=== PATIENT | female | born 1940 | race African-American/Black ===

== ENCOUNTER 2016-11-14 06:53 | Day surgery (SDC) | payer OTHER ==
--- NOTE | ~2016-11-14 | EGD ---
EGD REPORT [facility] [address] [place]. [id number] NAME: ZOIE THOMAS : [birth year] STATUS : REG [facility] [place] PAT#: [id number] AGE: 76 ADM/REG DATE : 11/14/16 MR#: [id number] REPORT SERV DATE: 11/14/16 DICTATED BY: PRADEEP NOLASCO DATE: 11/14/16 REPORT STATUS : Draft TRANSCRIBED BY: [facility] DATE: 11/14/16 [facility] Center Patient Name: Zoie Thomas Date of : 1940 Attending MD: PRADEEP NOLASCO MD Procedure Date No Time: 11/14/2016 Procedure: Colonoscopy Indications: High risk colon cancer surveillance: Personal history of colonic polyps; last exam 2013. Patient Profile: Informed consent was obtained from the patient by me prior to the procedure. Risks, benefits, and alternatives were discussed including the risk of bleeding, perforation, infection, reaction to medicine, missed lesion, and cardiopulmonary complications. Referring MD: ANA CRISTINA STILL Medicines: Monitored Anesthesia Care Complications: No immediate complications. Procedure: Pre-Anesthesia Assessment: - ASA Grade Assessment: III - A patient with severe systemic disease. After I obtained informed consent, the scope was passed under direct vision. Throughout the procedure, the patient's blood pressure, pulse, and oxygen saturations were monitored continuously. The CF [id number] was introduced through the anus and advanced to the cecum, identified by appendiceal orifice and ileocecal valve. The colonoscope was slowly withdrawn with careful examination all mucosal surfaces including specific attention around flexures and tip deflection behind folds; retroflexion performed in rectum. The colonoscopy was performed without difficulty. The patient tolerated the procedure well. The quality of the bowel preparation was adequate. The ileocecal valve, appendiceal orifice and rectum were photographed. CO2 utilized. Findings: The colon (entire examined portion) appeared normal. Impression: - The entire examined colon is normal. Recommendation: - Patient has a contact number available for emergencies. The signs and symptoms of potential delayed complications were discussed with the patient. Return to normal activities tomorrow. Written discharge instructions were provided to the patient. EGD REPORT [address] [address] NAME: ZOIE THOMAS : [birth year] STATUS : REG [facility]#: [id number] AGE: 76 ADM/REG DATE : 11/14/16 MR#: [id number] REPORT SERV DATE: 11/14/16 DICTATED BY: PRADEEP NOLASCO. DATE: 11/14/16 REPORT STATUS : Draft TRANSCRIBED BY: [employer] DATE: 11/14/16 - Regular diet. - Continue present medications. - Repeat colonoscopy is not recommended for surveillance based on age. Procedure Code(s): --- Professional --- 40407, Colonoscopy, flexible, proximal to splenic flexure; diagnostic, with or without collection of specimen(s) by brushing or washing, with or without colon decompression (separate procedure) Diagnosis Code(s): --- Professional --- Z12.11, Encounter for screening for malignant neoplasm of colon Z83.71, Family history of colonic polyps CPT copyright 2013 [employer]. All rights reserved. The codes documented in this report are preliminary and upon solar electric installer review may be revised to meet current compliance requirements. PRADEEP NOLASCO MD 11/14/2016 8:31 AM This report has been signed electronically. Number of Addenda: 0 Note Initiated On: 11/14/2016 7:55 AM Scope Withdrawal Time 0 hours 12 minutes 21 seconds 1983 [address] [id number]
[~2016-11-14 06:53] MED LIST: ASA5GR PO; CALCIUM; IBU800 PO; NEUR100 PO; NOLV10 PO; OS500+D PO; PRAVACHOL40 MG; VESICARE5 PO; VYTORIN 10/40 T1 TAB PO; ZESTRIL30 MG PO
== END 2016-11-14 23:59 | disposition home or self-care (01) ==
LOC: DMU 06:53
PROVIDERS: Internal Medicine Gastroenterology
PROC: 0DJD8ZZ Inspection of Lower Intestinal Tract, Via Natural or Artificial Opening Endoscopic (ICD-10-PCS; principal; 2016-11-14 08:00)
DX: Z12.11 Encounter for screening for malignant neoplasm of colon (principal); I10 Essential (primary) hypertension; F17.210 Nicotine dependence, cigarettes, uncomplicated; Z83.71 Family history of colonic polyps; Z85.3 Personal history of malignant neoplasm of breast; Z98.890 Other specified postprocedural states; Z79.899 Other long term (current) drug therapy; Z90.710 Acquired absence of both cervix and uterus